=== PATIENT | male | born 1995 | race African-American/Black ===

== ENCOUNTER 2018-06-01 18:06 | Emergency (ER) | payer OTHER ==
[~2018-06-01] VITALS: Ht 180.3 cm; Wt 74.4 kg
--- NOTE | ~2018-06-01 | EKG ---
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
[2018-06-01] MEDS ORDERED: MOBIC15 MG PO (19:55)
[2018-06-01 20:09] VITALS: BP 125/78
== END 2018-06-01 20:10 | disposition home or self-care (01) ==
LOC: ER 18:06
DX: S06.0X0A Concussion without loss of consciousness, initial encounter (principal); S20.219A Contusion of unspecified front wall of thorax, initial encounter; V89.2XXA Person injured in unspecified motor-vehicle accident, traffic, initial encounter; Y92.89 Other specified places as the place of occurrence of the external cause; Y93.89 Activity, other specified; Y99.8 Other external cause status

== ENCOUNTER 2018-08-10 09:53 | Emergency (ER) | payer OTHER ==
[~2018-08-10] VITALS: Ht 182.9 cm; Wt 72.6 kg
[~2018-08-10 09:53] MED LIST: MOBIC15 MG PO; MORPHINE SULFAT15 M3 PO
[2018-08-10 09:54] VITALS: BP 131/62
== END 2018-08-10 10:29 | disposition home or self-care (01) ==
LOC: ER 09:53
DX: S09.90XA Unspecified injury of head, initial encounter (principal); V89.2XXA Person injured in unspecified motor-vehicle accident, traffic, initial encounter; Y92.89 Other specified places as the place of occurrence of the external cause; Y93.89 Activity, other specified; Y99.8 Other external cause status